=== PATIENT | male | born 1955 | race American Indian/Alaskan Native ===

== ENCOUNTER 2022-03-30 16:12 | Emergency (ER) | payer OTHER ==
--- NOTE | 2022-03-30 16:51 | XRay Report ---
CHEST 2 VIEWS INDICATION / CLINICAL INFORMATION: chest pain. COMPARISON: None available. FINDINGS: SUPPORT DEVICES: None. HEART / MEDIASTINUM: No significant abnormality. LUNGS / PLEURA: No significant pulmonary or pleural abnormality. No pneumothorax. ADDITIONAL FINDINGS: No significant additional findings. IMPRESSION: 1. No acute findings. Signer Name: Deo Mora MD Signed: 03/30/2022 4:47 PM Workstation Name: [id number]
[2022-03-30 17:33] LABS: Hematocrit 38.2 % (35.5-45.6); Hemoglobin 12.5 gm/dl (11.8-15.2); Mean Corpuscular HGB Conc 33 % (32-34); Mean Corpuscular Volume 86 fl (84-94); Platelet Count 283 K/mm3 (140-440); Red Blood Count 4.43 M/mm3 (3.65-5.03); Red Cell Distribution Width 14.1 % (13.2-15.2)
[2022-03-30 17:43] LABS: Alanine Aminotransferase 28 units/L (7-56); Albumin 4.6 g/dL (3.9-5); BUN/Creatinine Ratio 24; Blood Urea Nitrogen 26 mg/dL (9-20); Calcium 9.8 mg/dL (8.4-10.2); Hemolysis Index 14
--- NOTE | 2022-03-30 17:56 | Emergency Department Report ---
ED Dizziness HPI - General Stated Complaint: BLURRED VISION/DIZZY Time Seen by Provider: 03/30/22 16:51 Source: patient Mode of arrival: Ambulatory Limitations: No Limitations - History of Present Illness Initial Comments: Patient is a 66-year-old male with history of hypertension who presenting with complaint of dizziness. States symptoms began after getting out of bed this m orning. States he felt lightheaded. Denies sensation of the room spinning. He reports double vision while driving to work today and also while sitting at his desk looking at the computer screen. He denies any headache, chest pain or difficulty breathing. - Related Data Previous Rx's Medication Instructions Recorded Last Taken Type Losartan [Cozaar] 100 mg PO QDAY #30 03/30/22 Unknown Rx amLODIPine 5 mg PO DAILY #30 tab 03/30/22 Unknown Rx Allergies Allergy/AdvReac Type Severity Reaction Status Date / Time No Known Allergies Allergy Unverified 03/30/22 16:16 ED Review of Systems ROS: Stated complaint: BLURRED VISION/DIZZY Other details as noted in HPI Constitutional: denies: chills, fever Eyes: vision change Respiratory: denies: cough, shortness of breath, wheezing Cardiovascular: denies: chest pain, palpitations Gastrointestinal: denies: abdominal pain, nausea, diarrhea Musculoskeletal: denies: back pain, joint swelling, arthralgia Skin: denies: rash, lesions Neurological: denies: headache, vertigo Psychiatric: denies: anxiety, depression ED Past Medical Hx - Past Medical History Previous Medical History?: Yes Hx Hypertension: Yes - Surgical History Past Surgical History?: No - Medications Home Medications: Home Medications Medication Instructions Recorded Confirmed Last Taken Type Losartan [Cozaar] 100 mg PO QDAY #30 03/30/22 Unknown Rx amLODIPine 5 mg PO DAILY #30 tab 03/30/22 Unknown Rx ED Physical Exam - General General appearance: alert, in no apparent distress - Head Head exam: Present: atraumatic, normocephalic - Respiratory Respiratory exam: Present: normal lung sounds bilaterally. Absent: respiratory distress - Cardiovascular Cardiovascular Exam: Present: regular rate, normal rhythm, normal heart sounds - GI/Abdominal GI/Abdominal exam: Present: soft. Absent: distended, tenderness - Rectal Rectal exam: Present: deferred - Extremities Exam Extremities exam: Present: normal inspection, full ROM - Neurological Exam Neurological exam: Present: alert, oriented X3 - Psychiatric Psychiatric exam: Present: normal affect, normal mood ED Course Vital Signs 03/30/22 03/30/22 03/30/22 16:16 17:19 17:31 Temperature 97.4 F L Pulse Rate 77 73 74 Respiratory 16 15 18 Rate Blood Pressure Blood Pressure 172/73 [Left] O2 Sat by Pulse 97 Oximetry 03/30/22 03/30/22 03/30/22 17:45 18:00 18:15 Temperature Pulse Rate 76 67 69 Respiratory 13 11 L 8 L Rate Blood Pressure 154/67 147/74 Blood Pressure [Left] O2 Sat by Pulse Oximetry 03/30/22 18:16 Temperature Pulse Rate 67 Respiratory Rate Blood Pressure 147/74 Blood Pressure [Left] O2 Sat by Pulse Oximetry ED Medical Decision Making - Lab Data Result diagrams: 03/30/22 16:54 03/30/22 16:54 - Medical Decision Making Patient presenting to ED with complaint of nonspecific dizziness and blurred vision. CT head and chest x-ray are unremarkable. EKG is normal. CBC and CMP grossly unremarkable. Differential diagnosis includes presyncopal spell, TIA and fatigue. On reassessment patient states his symptoms are resolved. States he is out of his losartan. We will refill prior to discharge. Critical care attestation.: If time is entered above; I have spent that time in minutes in the direct care of this critically ill patient, excluding procedure time. ED Disposition Clinical Impression: Nonspecific dizziness, Blurred vision Disposition: 01 HOME / SELF CARE / HOMELESS Is pt being admited?: No Condition: Stable Instructions: Blurred Vision, Adult, Dizziness, [id number] Referrals: [facility] [Other] - 3-5 Days
[2022-03-30] MEDS ORDERED: cloNIDine 0.2 MG TAB PO ONE (18:00)
[2022-03-30 18:17] VITALS: BP 147/74
--- NOTE | 2022-03-30 18:39 | Cat Scan Report ---
CT HEAD WITHOUT CONTRAST INDICATION / CLINICAL INFORMATION: dizziness. TECHNIQUE: All CT scans at this location are performed using CT dose reduction for ALARA by means of automated e xposure control. COMPARISON: None available. FINDINGS: HEMORRHAGE: No evidence of intracranial hemorrhage or extra-axial fluid collection. EXTRA-AXIAL SPACES: There is focal dilatation of the right parieto-occipital sulcus. Cortical sulci, sylvian fissures and basilar cisterns have an otherwise unremarkable appearance. VENTRICULAR SYSTEM: The third and lateral ventricles are of normal size and configuration. CEREBRAL PARENCHYMA: No areas of abnormal brain parenchymal attenuation are identified. There is no i ndication of recent infarction. MIDLINE SHIFT OR HERNIATION: There is no mass effect. CEREBELLUM / BRAINSTEM: Brainstem and cerebellum have an unremarkable appearance. MIDLINE STRUCTURES:No abnormalities of the pituitary gland or pineal region are identified. INTRACRANIAL VESSELS: Calcified atherosclerotic plaque is seen along the course the cavernous segment s of both internal carotid arteries. ORBITS: visualized portions of the orbits have an unremarkable appearance. SOFT TISSUES of HEAD: No significant abnormality. CALVARIUM: Evaluation of bone windows reveals no abnormalities. PARANASAL SINUSES / MASTOID AIR CELLS: Visualized portions of the paranasal sinuses are free from inf lammatory mucosal disease. Mastoid air cells are normally pneumatized. ADDITIONAL FINDINGS: None. IMPRESSION: 1. No significant intracranial abnormality on head CT without contrast.. Signer Name: Aman Eugene MD Signed: 03/30/2022 6:35 PM Workstation Name: [id number]
[2022-03-30 20:14] LABS: Mucus,Urine FEW /HPF
[2022-03-30 20:34] LABS: Bilirubin,Urine Negative (Negative); Blood,Urine Moderate (Negative); Color,Urine Yellow (Yellow)
--- NOTE | 2022-03-31 17:52 | Electrocardiograph Report ---
[facility] Test Date: 2022-03-30 Test Time: 17:57:28 Pat Name: MAYNOR SIMONS Department: Room: Gender: M Call Center Agent: MAYUR : 1955 Requested By: SARA CHAU Order Number: [id number] Reading MD: Eric Godwin Measurements Intervals [place] Rate: 70 P: 53 ME: 191 QRS: -7 QRSD: 107 T: 28 QT: 376 QTc: 406 Interpretive Statements Sinus rhythm No previous ECG available for comparison Electronically Signed On 03-31-2022 17:52:08 EDT by Eric Godwin
== END 2022-03-30 19:07 | disposition home or self-care (01) ==
LOC: EEVIPCON 16:12 → ED 16:12
DX: R42 Dizziness and giddiness (principal); H53.8 Other visual disturbances
CPT/HCPCS: 36415; 70450; 71046; 80053; 81001; 82962; 84484; 85027; 93005; 99284